=== PATIENT | female | born 1960 ===

== ENCOUNTER 2018-04-29 16:52 | Emergency (ER) | payer OTHER ==
[~2018-04-29] VITALS: Ht 170.2 cm; Wt 61.2 kg
--- NOTE | 2018-04-29 20:30 | Diagnostic Imaging Report ---
Exam: Cervical spine CT without IV contrast History: Trauma, fall Comparison studies: None Technique: Axial images were obtained through the cervical region. Coronal and sagittal images reconstructed from the axial data. Intravenous contrast: None Findings: Atlantoaxial articulation: Intact Alignment: Normal lordotic curvature. No subluxations. Cervicomedullary junction: No abnormalities. Patent foramen magnum. Soft tissues: No gross acute abnormalities. Vertebrae: Minimal depression of the superior C4 endplate without significant height loss or surrounding soft tissue swelling may be chronic. No other fractures. Degenerative changes: C2-C3: Moderate left and mild right facet arthrosis. Patent canal and foramina. C3-4: Severe left and moderate right facet arthrosis. Left facets are fused. Minimal left foraminal narrowing due to uncovertebral facet arthrosis. Patent canal. C4-5: Severe left and moderate right facet arthrosis. Mild left foraminal stenosis due to uncovertebral facet arthrosis. Patent canal and right foramen. C5-6: Moderate bilateral facet arthrosis. Patent canal and foramina. C6-7: Mild bilateral facet arthrosis. Patent canal and foramina. C7-T1: Moderate left and mild right facet arthrosis. Patent canal and foramina. Incidental findings: Atherosclerosis at the cervical carotid bulbs. Emphysema and scarring at the partially imaged lung apices and 4 mm calcified granuloma the left lung apex. IMPRESSION: 1. Age-indeterminate C4 superior endplate depression deformity without significant height loss, possibly chronic. If pain persists, cervical spine MRI could further further evaluate as warranted. 2. No other fractures. No subluxations. 3. 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 4. Ligament, spinal cord and or vascular abnormalities cannot adequately be evaluated on the basis of this exam. Findings discussed with Dr. Todd at 8:23 PM on 04/29/2018. Signed by: Dr. Robi Mario M.D. on 04/29/2018 8:26 PM
--- NOTE | 2018-04-29 22:06 | Diagnostic Imaging Report ---
Exam: Cervical spine MRI without IV contrast History: Evaluate for possible acute fracture Comparison studies: Cervical spine CT 04/21/2018 Technique: Sagittal T1, T2 and IR, axial T2 and axial gradient echo Intravenous contrast: None Findings: Several pulse sequences are limited artifacts related to patient motion. In spite of this limitation: Alignment: Normal lordosis. No scoliosis. Cervicomedullary junction: No abnormalities. Patent foramen magnum. Soft tissues: No T2 hyperintense inflammatory changes. Spinal cord: Normal in size and signal from the foramen magnum through T1. Vertebrae: Unchanged minimal depression of the superior C4 endplate without significant height loss. No associated edema to indicate acute fracture. No other abnormal marrow edema. No evidence of infection or neoplasm. Degenerative changes: C2-C3: Moderate left and mild right facet arthrosis. Patent canal and foramina. C3-4: Severe left and moderate right facet arthrosis. Left facets are fused. No significant foraminal stenosis. Patent canal. C4-5: Severe left and moderate right facet arthrosis. Mild left foraminal stenosis due to uncovertebral facet arthrosis. Patent canal and right foramen. C5-6: Moderate bilateral facet arthrosis. Patent canal and foramina. C6-7: Mild bilateral facet arthrosis. Patent canal and foramina. C7-T1: Moderate left and mild right facet arthrosis. Patent canal and foramina. IMPRESSION: 1. No evidence of acute post-traumatic osseous or ligamentous injury. 2. Small chronic superior C4 endplate depression deformity. 3. Multilevel advanced facet arthrosis. 4. No canal stenosis or significant foraminal stenosis. Signed by: Dr. Robi Mario M.D. on 04/29/2018 10:02 PM
[2018-04-29 22:30] VITALS: BP 147/85
== END 2018-04-29 22:39 | disposition home or self-care (01) ==
LOC: ER 16:52
DX: M54.2 Cervicalgia (principal); S16.1XXA Strain of muscle, fascia and tendon at neck level, initial encounter; S50.12XA Contusion of left forearm, initial encounter; S50.11XA Contusion of right forearm, initial encounter; W10.8XXA Fall (on) (from) other stairs and steps, initial encounter; Y92.008 Other place in unspecified non-institutional (private) residence as the place of occurrence of the external cause; J44.9 Chronic obstructive pulmonary disease, unspecified; F41.9 Anxiety disorder, unspecified; F43.10 Post-traumatic stress disorder, unspecified
CPT/HCPCS: 72125; 72141; 99284